=== PATIENT | male | born 1980 | race Caucasian/White ===

== ENCOUNTER 2022-10-09 07:39 | Outpatient (CLI) | payer OTHER | END 2022-10-09 07:40 | disposition home or self-care (01) | LOC: ULT 07:39 | PROVIDERS: ATTEND Student in an Organized Health Care Education/Training Program | DX: R74.01 Elevation of levels of liver transaminase levels (principal); K76.0 Fatty (change of) liver, not elsewhere classified; R16.0 Hepatomegaly, not elsewhere classified | CPT/HCPCS: 76700; 76705 ==